=== PATIENT | female | born 1970 ===

== ENCOUNTER → 2020-11-15 | Outpatient (CLI) | payer MEDICAID ==
[~2020-11-15] VITALS: Ht 162.6 cm; Wt 62.1 kg
[~2020-11-15] MED LIST: PANTOPRAZOLE SO40 MG ORAL
[2020-11-15 14:33] VITALS: BP 108/67
--- NOTE | 2020-11-19 17:44 | Consultation ---
DATE OF CONSULTATION: 11/15/2020 CHIEF COMPLAINT: Referral for evaluation of abdominal pain, need for screening colonoscopy. PAST MEDICAL HISTORY: H. pylori positive gastritis. PAST SURGICAL HISTORY: None. MEDICATIONS: See medication reconciliation list. The patient currently on Protonix 40 mg daily. FAMILY HISTORY: Noncontributory. SOCIAL HISTORY: The patient denies any tobacco, alcohol, or drug abuse. ALLERGIES: No known drug allergies. REVIEW OF SYSTEMS: Positive for abdominal pain, GERD not responding to PPI, constipation, nausea, regurgitation. PHYSICAL EXAMINATION: VITAL SIGNS: Temperature 97.5, blood pressure is 108/67, pulse 78, respirations 20. HEENT: Normocephalic and atraumatic. Atraumatic sclerae. NECK: Supple. No evidence of obvious lymphadenopathy. CARDIOVASCULAR: Regular rate and rhythm. Plus S1, S2. LUNGS: Clear to auscultation bilaterally. ABDOMEN: Positive bowel sounds. Soft and nontender. No rebound. No guarding. No peritoneal sign. EXTREMITIES: No cyanosis. No clubbing. ASSESSMENT AND PLAN: This is a 49-year-old female, needs screening colonoscopy, also complained of chronic GERD, not responding to PPI. We will plan to do EGD and colonoscopy when authorization is obtained. Memo Yip M.D. DR: Cecilia JOB#: [id number] CC:
== END | disposition home or self-care (01) ==
LOC: PAN 14:12
DX: R10.9 Unspecified abdominal pain (principal)
CPT/HCPCS: 99203